=== PATIENT | male | born 1980 | race Hispanic/Latino ===

== ENCOUNTER 2021-03-22 12:39 | Outpatient (CLI) | payer OTHER ==
[2021-03-22 13:33] LABS: Blood Urea Nitrogen 15 mg/dL (9-20)
--- NOTE | 2021-03-22 14:34 | Cat Scan Report ---
FACIAL CT 03/22/2021 HISTORY: Right nasal mass. FINDINGS: Contrast enhanced CT images of the facial structures were obtained. Images are evaluated in the axial, coronal, and sagittal plane. There is no evidence of abnormal soft tissue mass within the nasal cavity. Paranasal sinuses are myles r. The infundibula are patent. Small bilateral Luly type air cells are noted incidentally. There is curvilinear configuration to the septum in the coronal plane. There is no evidence of abnorm al mass. Visualized portions of the orbits are unremarkable. IMPRESSION: No CT evidence of significant abnormal soft tissue mass. All CT scans at this location are performed using dose reduction to ALARA by means of automated expos ure control. Signer Name: Yannick Juarez MD Signed: 03/22/2021 2:30 PM Workstation Name: [id number]
== END 2021-03-22 12:40 | disposition home or self-care (01) ==
LOC: CT 12:39
PROVIDERS: ATTEND Psychiatry & Neurology Psychiatry
DX: J34.89 Other specified disorders of nose and nasal sinuses (principal)
CPT/HCPCS: 36415; 70487; 82565; 84520; Q9967